=== PATIENT | female | born 1930 | race Caucasian/White ===

== ENCOUNTER → 2016-04-24 | Day surgery (SDC) | payer MEDICARE ==
[~2016-04-24] MED LIST: ALPRAZOLAM PO; AMITIZA24 MCG PO; AMOXICILLIN PO; ASPIRIN EC81 M1 PO; ASPIRIN PO; ASPIRIN81 M2 PO; ATARAX PO; BENADRYL PO; CITRACAL + D CA1 TA1 PO; CLARITHROMYCIN500 MG PO; COLACE PO; CRESTOR PO; DEMADEX PO; DEMADEX10 MG PO; EFFEXOR; ELMIRON100 MG PO; HYDROCODON-ACE1 EAC4 PO; HYDROCODON-ACE1 EAC5 PO; HYZAAR 100-25 T1 TA1 PO; HYZAAR 100-25 T1 TAB PO; HYZAAR1 TAB 100- PO; IRON325 ( 652 PO; JANUVIA PO; JANUVIA100 MG PO; JANUVIA25 MG PO; K-TAB ER20 MEQ PO; KCL PO; KLOR-CON PO; LASIX PO; LEVAQUIN PO; LEVBID; LEXAPRO PO; LEXAPRO20 MG PO; LINZESS290 MCG PO; LO-DOSE ASPIRIN81 M1 PO; LORTAB 10/500 T1 TAB PO; LOSARTAN POTAS100 MG PO; LOVENOX40 MG/0.4 INJ; MILK OF MAGNESIA PO; MYRBETRIQ25 MG PO; NEXIUM PO; NORVASC10 MG PO; OCUVITE SOFTGEL1 CA1 PO; OCUVITE TABLET1 TA1 PO; PHENERGAN12.5 MG PO; POTASSIUM CHLO10 ME1 PO; PRAVACHOL10 MG PO; PRAVACHOL20 MG PO; PRAVASTATIN SOD40 MG PO; PRILOSEC; PROTONIX PO; TOPROL XL; TOPROL XL PO; TOPROL XL100 MG PO; VICODIN; VITAMIN D50000 UNIT PO; XANAX0.5 MG PO
--- NOTE | ~2016-04-24 | OR ---
Unit #: [id number] #: [id number] Patient: EDIL BARCENAS [id number] [address] [address] [id number] O MR#: [id number] NAME: EDIL BARCENAS ROOM: Date of Procedure: 04/24/2016 Admission Date: 04/24/2016 Surgeon: Jeremy Hernandes M.D. : 1930 Attending Physician: Jeremy Hernandes M.D. Primary Care Physician: Hayley Rowan M.D. OPERATIVE REPORT JOB NOTE: CC: [facility] PREOPERATIVE DIAGNOSES Back pain, radiculopathy, degenerative disk disease, spondylolisthesis. POSTOPERATIVE DIAGNOSES Back pain, radiculopathy, degenerative disk disease, spondylolisthesis. PROCEDURE PERFORMED Lumbar epidural steroid injection with intravenous sedation and fluoroscopic guidance for needle localization. INDICATIONS FOR PROCEDURE The patient is an 85-year-old female, who had worsening back and bilateral lower extremity pain due to previously mentioned nonsurgical diagnosis. She is treated medically with p.r.n. epidural steroid injections. Injection done 2 weeks ago resulted in moderate improvement in all components of her pain. Based on a good partial response, pathology, and symptomatology, plan is to repeat epidural steroid injection again today. Last injections were completed a year and a half ago and she did very well with treatment at that point. DESCRIPTION OF PROCEDURE The patient was placed in a seated position. Standard monitors were applied. 1 mg of Versed was given for sedation and anxiolysis, which were adequate. Vital signs remained stable. Sterile prep and drape then of the lumbar area was performed. The skin then to the right of midline at the L3-4 level was localized with 1% lidocaine. An 18-gauge Aureon Labor[employer] needle was then advanced via right paramedian approach with loss of resistance technique in toward the epidural space. After confirming proper positioning with fluoroscopy and radiographic contrast, 80 mg of Depo-Medrol and 6 mL of 0.125% bupivacaine were deposited. The patient tolerated the procedure otherwise well and was discharged to the recovery room in stable condition. Dictated by... Jeremy Hernandes M.D. LHP/modl Unit #: [id number] #: [id number] Patient: EDIL BARCENAS TD: 04/24/2016 22:48 JOB #: [id number] OPERATIVE REPORT X Jeremy Hernandes MD X PROCEDURE OPERATIVE NOTE
== END | disposition home or self-care (01) ==
LOC: CCSC 09:55
DX: M51.16 Intervertebral disc disorders with radiculopathy, lumbar region (principal); M43.16 Spondylolisthesis, lumbar region; I10 Essential (primary) hypertension; K21.9 Gastro-esophageal reflux disease without esophagitis
CPT/HCPCS: 82947; J1040; J2250

== ENCOUNTER → 2016-05-08 | Day surgery (SDC) | payer MEDICARE ==
--- NOTE | ~2016-05-08 | OR ---
Unit #: [id number] #: [id number] Patient: EDIL BARCENAS [id number] [address] [address] [id number] O MR#: [id number] NAME: EDIL BARCENAS ROOM: Date of Procedure: 05/08/2016 Admission Date: 05/08/2016 Surgeon: Jeremy Hernandes M.D. : 1930 Attending Physician: Jeremy Hernandes M.D. Primary Care Physician: Hayley Rowan M.D. OPERATIVE REPORT PREOPERATIVE DIAGNOSES 1. Back pain. 2. Radiculopathy. 3. Degenerative lumbar disk disease. 4. Postlaminectomy syndrome. 5. Spondylolisthesis. POSTOPERATIVE DIAGNOSES 1. Back pain. 2. Radiculopathy. 3. Degenerative lumbar disk disease. 4. Postlaminectomy syndrome. 5. Spondylolisthesis. PROCEDURE PERFORMED Lumbar epidural steroid injection with intravenous sedation and fluoroscopic guidance for needle localization. INDICATIONS FOR PROCEDURE The patient is an 85-year-old female with significant worsening back pain, bilateral lower extremity pain, and left flank pain, which was radicular in nature. She has multilevel multifactorial nonsurgical disease and is treated medically with p.r.n. epidural steroid injections. Last injections were completed in 09/2014. She had 2 injections at this point over the last several weeks, which was given additive improvement in all components of her pain. Flank pain and back pain remain most significant. Based on her good partial response, pathology, and symptomatology, and available treatment options, plan is to repeat a final epidural steroid injection today. We are going to approach a little bit higher in the lumbar spine as we could take care more of that left-sided flank pain. DESCRIPTION OF PROCEDURE The patient was placed in a seated position. Standard monitors were applied. 1 mg of Versed was given for sedation and anxiolysis, which was adequate. Vital signs remained stable. Sterile prep and drape then of the lumbar area was performed. The skin then to the right of midline at the L2-L3 level was localized with 1% lidocaine. An 18-gauge Savelli needle was then advanced via right paramedian approach and loss of resistance technique in toward the epidural space. The patient did not complain of pain or paresthesia during needle advancement. After confirming proper needle tip positioning with fluoroscopy and radiographic contrast, a dose of 80 mg of Depo-Medrol and 6 mL of 0.125% bupivacaine Unit #: [id number] #: [id number] Patient: EDIL BARCENAS were deposited. The patient tolerated the procedure otherwise well and was discharged to the recovery room in stable condition. Dictated by... Chiquita Lehman/danielle TD: 05/09/2016 00:50 JOB #: [id number] OPERATIVE REPORT X Jeremy Hernandes MD X PROCEDURE OPERATIVE NOTE
== END | disposition home or self-care (01) ==
LOC: CCSC 09:45
DX: M51.16 Intervertebral disc disorders with radiculopathy, lumbar region (principal); M96.1 Postlaminectomy syndrome, not elsewhere classified; M43.16 Spondylolisthesis, lumbar region; I10 Essential (primary) hypertension
CPT/HCPCS: 82947; J1040; J2250

== ENCOUNTER → 2016-07-27 | Outpatient (CLI) | payer MEDICARE ==
--- NOTE | ~2016-07-27 | MY11 ---
[facility] A Service of [facility] RADIOLOGY TEXT RESULTS PATIENT: EDIL BARCENAS LOCATION: [facility] : [birth year] UNIT #: [id number] AGE: [address]: Hayley Rowan MD SEX: F ORDER DR: [id number] [facility] [address] [place], [place] [address] [id number] O MR#: [id number] Acc #: [id number] NAME: EDIL BARCENAS. : 1930 SEX: F STUDY DATE/TIME: 07/27/2016 11:06 UNIT: [facility] ROOM: STUDY DESCRIPTION: MY Mammogram Screening Dig Alex Attending Physician: Hayley Rowan M.D. Referring Physician: Hayley Rowan M.D. Ordering Physician: Hayley Rowan M.D. Primary Care Physician: Hayley Rowan M.D. MEDICAL IMAGING REPORT This report is preliminary unless electronic signature is present EXAMINATION Bilateral digital screening mammogram with CAD. DATE 07/27/2016 HISTORY Family history of breast cancer in a sister and in cousins. No personal history of breast cancer or current complaints. COMPARISON Bilateral screening mammogram 05/25/2013, 05/20/2012. FINDINGS CC and MLO views were obtained of each breast utilizing digital technique and reviewed with an FDA-approved CAD device. Scattered fibroglandular densities are present bilaterally. Round markers were placed over each breast denoting skin lesions. Fibronodular disease in the upper/outer right breast appear unchanged, and are thought most likely to represent benign intramammary lymph nodes. No new or suspicious nodule is seen. There is no architectural distortion. Benign appearing calcifications are present bilaterally. IMPRESSION 1. BIRADS 2. Benign findings. Routine bilateral screening mammogram is recommended in one year. Patients over the age of 40 are entered into a reminder system with target due date for the next mammogram. A result letter will also be sent to the patient. BIRADS: 2 Benign findings. [facility] A Service of [facility] RADIOLOGY TEXT RESULTS PATIENT: EDIL BARCENAS LOCATION: [facility] #: [id number] : [birth year] UNIT #: [id number] AGE: [address]: Hayley Rowan MD SEX: F ORDER DR: Dictated by... Ce Clark M.D. THIS IS AN ELECTRONICALLY VERIFIED REPORT Ce Clark M.D. at 07/27/2016 4:35 PM WIN/steven TD: 07/27/2016 16:10 JOB #: [id number] MEDICAL IMAGING REPORT Page 1 of 1 COPY
== END | disposition home or self-care (01) ==
LOC: CWCC 07-20 12:15
DX: Z12.31 Encounter for screening mammogram for malignant neoplasm of breast (principal); Z80.3 Family history of malignant neoplasm of breast
CPT/HCPCS: G0202

== ENCOUNTER 2016-08-05 10:47 | Inpatient (IN) | payer MEDICARE ==
--- NOTE | ~2016-08-05 | FU ---
[facility] Nutrition Therapy DATE: 08/10/16 Patient: EDIL ABRCENAS Physician: VIJAY [facility] [address] Room/Bed: [address] [place] [address], Zip: [place] [address] Admit Date: 08/05/16 Date of : [birth year] Height: 5 8 Weight: 161 73.2 NUTRITION MONITORING/FOLLOW-UP: Reason: follow-up, [facility] Dx: 85 y/o female admitted for n/v and weakness Anthropometrics: ht: 5'8" wt: 161# (73 kg) (per [facility]) BMI: 24 -Family reports weight of 142# Labs: Alb 3.2 Meds: xanax, lexapro, protonix, hydrochlorothiazide, zofran, novolog I&O's: 1050/3 Skin: WNL Assessment: Chart reviewed, events noted. Pt has advanced to consistent carbohydrate diet since last visit. Of note, the pt and pt's family report that the pt is not diabetic. There are no high glucose labs in [facility] and HgbA1C is WNL. RD internal grinder tender spoke to pt and family at bedside. Pt reports good intake and good appetite, except when occasional n/v. Pt says her appetite and intake have improved. RD internal grinder tender encouraged intake of food as tolerated and ensure supplements. The pt reported no questions at this time, RD will continue to follow. Dx: 1) Inadequate protein-energy intake r/t lower jaw edentulous AEB poor po intake per pt report, n/v. -Active/In progress 2) Unintentional weight loss r/t lower jaw edentulous, current clinical condition AEB pt reported weight loss of 38# over the past 9 months/~20% severe weight loss noted. -Active/In progress Intervention: 1. Liberalize diet 2. ensure supplements TID Monitoring, Evaluation and Goals: 1. Oral intake; tolerate >80% of all meals/supplements -In progress 2. Weight; prevent further unintentional weight loss, promote weight maintenance -In progress 3. GI; promote regular GI function -In progress [facility] Nutrition Therapy DATE: 08/10/16 Patient: EDIL BARCENAS Physician: VIJAY Address: [address] [place] [address] Room/Bed: [address] [place] [address], Zip: [place] [address] Admit Date: 08/05/16 Date of : [birth year] Height: 5 8 Weight: 161 73.2 Monitor: -weight -oral intake Recommendations: 1. Ensure vanilla BID. 2. Change consistent carbohydrate diet to regular diet as pt does not have diabetes/high bloog sugar. 3. Encourage adequate PO intake. RD will f/u per protocol as pt is at mild nutritional risk. 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
--- NOTE | ~2016-08-05 | OR ---
Unit #: [id number] #: [id number] Patient: EDIL BARCENAS [id number] [address] [address] [id number] I MR#: [id number] NAME: EDIL BARCENAS. [facility]OM[facility] Date of Procedure: 08/07/2016 Admission Date: 08/05/2016 Surgeon: Tyrell Frias M.D. : 1930 Attending Physician: Brie Garcia M.D. Primary Care Physician: Hayley Rowan M.D. OPERATIVE REPORT INDICATIONS FOR PROCEDURE Esophagogastroduodenoscopy with biopsy. INDICATIONS FOR PROCEDURE The patient with persistent severe nausea, vomiting, anorexia, and weight loss, undergoing evaluation with upper endoscopy. MEDICATIONS Monitored anesthesia. POSTOPERATIVE FINDINGS 1. Mild esophagitis, hiatal hernia, nonobstructing esophageal ring. 2. Mild diffuse gastritis. Biopsies taken. 3. Normal duodenum and distal duodenum. PLAN No clear cause for the patient's symptom was established, we will continue with PPI and symptomatic treatment for now. DESCRIPTION OF PROCEDURE The patient was explained of the procedure, risks, and benefits along with the risks and benefits of anesthesia. She was brought to the endoscopy room. Propofol anesthesia was given. Bite block was placed. The scope was passed down the mouth into the esophagus, stomach, duodenum, and distal duodenum. Findings as described. Biopsies taken. Gently, I pulled it out of the patient's mouth. She tolerated it well. Dictated by... Chiquita Mcdaniel/danielle TD: 08/07/2016 22:13 JOB #: [id number] Unit #: [id number] #: [id number] Patient: EDIL BARCENAS OPERATIVE REPORT Page 1 of 1 X Tyrell Frias MD X PROCEDURE OPERATIVE NOTE
--- NOTE | ~2016-08-05 | DS ---
Unit #: [id number] #: [id number] Patient: EDIL BARCENAS [id number] [address] [address] [id number] I MR#: [id number] NAME: EDIL BARCENAS. ROOM: 232 Age: 85 Sex: F Admission Date: 08/05/2016 : 1930 Discharge Date: Attending Physician: Brie Garcia M.D. Primary Care Physician: Hayley Rowan M.D. DISCHARGE SUMMARY ADDENDUM ADDITIONAL DISCHARGE MEDICATION Zofran 4 mg p.o. q.6 hours p.r.n. nausea and vomiting. Dictated by... Chiquita Gorman/mattie TD: 08/09/2016 09:55 JOB #: [id number] DISCHARGE SUMMARY Page 1 of 1 X Brie Garcia MD X DISCHARGE SUMMARY
--- NOTE | ~2016-08-05 | NM19 ---
[facility] A Service of [facility] & [facility] RADIOLOGY TEXT RESULTS PATIENT: EDIL BARCENAS LOCATION: [facility] 232- : 31 UNIT #: [id number] AGE: [address]: Brie Garcia MD SEX: F ORDER DR: [id number] [facility] [address] [place], [place] [address] [id number] I MR#: [id number] Acc #: [id number] NAME: EDIL BARCENAS. : 1930 SEX: F STUDY DATE/TIME: 08/08/2016 7:37 UNIT: [facility] ROOM: [facility] STUDY DESCRIPTION: NM Gastric Emptying Study Attending Physician: Brie Garcia M.D. Ordering Physician: Tyrell Frias M.D. Primary Care Physician: Hayley Rowan M.D. MEDICAL IMAGING REPORT This report is preliminary unless electronic signature is present EXAM Gastric emptying scan, 08/08/2016. HISTORY Persistent nausea and vomiting and weight loss, and abdominal bloating for 3 weeks. FINDINGS The patient ingested 600 mcCi of technetium 99m tagged sulfur colloid in eggs. Images of the upper abdomen were obtained for 4 hours. After 1 hour, the stomach was 10% empty and after 2 hours the stomach was 55% empty. At 4 hours, stomach was 97% empty. Normal range is greater than 60% empty after 2 hours of imaging and greater than 90% empty after 4 hours of imaging. IMPRESSION Borderline delay in gastric emptying after 2 hours of imaging and normal gastric emptying after 4 hours of imaging. Dictated by... Soham Duval M.D. THIS IS AN ELECTRONICALLY VERIFIED REPORT Soham Duval M.D. at 08/09/2016 8:01 AM ADOLFO/jaci TD: 08/08/2016 14:18 JOB #: [id number] MEDICAL IMAGING REPORT Page 1 of 1 COPY
--- NOTE | ~2016-08-05 | A ---
[facility] Nutrition Therapy DATE: 08/06/16 Patient: EDIL BARCENAS Physician: VIJAY Address: [address] [place] [address] Room/Bed: [address] [place] [address], Zip: [place] [address] Admit Date: 08/05/16 Date of : 31 Height: 5 8 Weight: 154 69.9 NUTRITIONAL ASSESSMENT: REASON: POOR PO INTAKE, UNINTENTIONAL WEIGHT LOSS; MARKETING STRATEGY MANAGER VERBAL REQUEST TO SEE DX: 85 Y.O. FEMALE ADMITTED FOR NAUSEA/VOMITING AND WEAKNESS PMH: CHRONIC BACK PAIN, CHF, HYPERLIPIDEMIA, DM, HYPERTENSION, OSTEOPOROSIS Anthropometrics: 5'8", 154# (70 KG), BMI 27 Labs: ALT 9 Meds: LEXAPRO, XANAX, NACL, ZOFRAN, NOVOLOG, PROTONIX I/O & Bowel function: 1420/900 Skin Integrity: WNL. Assessment: CHART REVIEWED, EVENTS NOTED. MS. BARCENAS IS A 85 Y.O. FEMALE ADMITTED FOR N/V AND WEAKNESS. RD SPOKE TO PT AND PT COUSIN AT BEDSIDE. PT AND PT'S COUSIN REPORTED THAT THE PT HAD SOME LOWER TEETH REMOVED 2015 AND SHE HAS BEEN UNABLE TO EAT SOLID FOOD SINCE THEN, ONLY EATING SOFTENED FOODS AT HOME AND DRINKING ENSURE. PT IS CURRENTLY NPO FOR AN EGD TOMORROW. PT REPORTS HER WEIGHT BEFORE THE DENTAL PROCEDURE BEING 192#, INDICATING A 38# WEIGHT LOSS OVER 9 MONTHS/~20% SEVERE WEIGHT LOSS NOTED. PT WAS VERY LETHARGIC AND WEAK AT TIME OF VISIT. RD ENCOURAGED PT TO CONSUME ADEQUATE MEALS THAT SHE CAN TOLERATE AND OFFERED TO ORDER ENSURE SUPPLEMENTS. PT'S COUSIN ASKED ABOUT MAKING NUTRITIOUS SHAKES WITH FRUITS AND VEGETABLES AT HOME FOR THE PATIENT, AND RD ENCOURAGED AND PROVIDED WRITTEN SOFT FOODS DIET EDUCATION. RD WILL REMAIN AVAILABLE. Dx: 1) INADEQUATE PROTEIN-ENERGY INTAKE R/T LOWER JAW EDENTULOUS AEB POOR PO INTAKE PER PT REPORT, NAUSEA/VOMITING 2) UNINTENTIONAL WEIGHT LOSS R/T LOWER JAW EDENTULOUS, CURRENT CLINICAL CONDITION AEB PT REPORTED WEIGHT LOSS OF 38# OVER PAST 9 MONTHS/~20% SEVERE WEIGHT LOSS NOTED. Intervention: 1. ENSURE SUPPLEMENTS ONCE DIET ADVANCES 2. NPO Monitoring, Evaluation and Goals: 1. ORAL INTAKE; TOLERATE >80% OF ALL MEALS/SUPPLEMENTS 2. WEIGHT; PREVENT FURTHER UNINTENTIONAL WEIGHT LOSS, PROMOTE WEIGHT MAINTENANCE 3. GI; PROMOTE REGULAR GI FUNCTION [facility] Nutrition Therapy DATE: 08/06/16 Patient: EDIL Su LIBRADOKAI Physician: VIJAY Address: [address] [place] [address] Room/Bed: [address] [place] [address], Zip: [place] [address] Admit Date: 08/05/16 Date of : 31 Height: 5 8 Weight: 154 69.9 Recommendations: 1. ONCE MEDICALLY FEASIBLE, ADVANCE DIET TOLERATED PER MARKETING STRATEGY MANAGER + REGULAR DIET OF NOTE, PT HAS MISSING BOTTON TEETH 2. PLEASE ORDER ENSURE VANILLA TID ONCE DIET ADVANCES RD WILL F/U PER PROTOCOL PT IS AT MILD/MODERATE NUTRITIONAL RISK. Respectfully, LAMINE ROSE, STORE SALES CONSULTANT LOUIS RAMIREZ MS, RD, LD [employer] and Nutrition[facility] Services [facility] cc: client file
--- NOTE | ~2016-08-05 | CR72 ---
[facility] A Service of [facility] & [facility] RADIOLOGY TEXT RESULTS PATIENT: EDIL BARCENAS LOCATION: [place] [address] : [birth year] UNIT #: [id number] AGE: [address]: Brie Garcia MD SEX: F ORDER DR: [id number] [facility] [address] [place], [place] [address] [id number] I MR#: [id number] Acc #: [id number] NAME: EDIL BARCENAS. : 1930 SEX: F STUDY DATE/TIME: 08/05/2016 11:19 UNIT: [id number] ROOM: 2 STUDY DESCRIPTION: CR Chest Single View Portable Attending Physician: Aiyana Lucero M.D. Ordering Physician: Neeraj Michel D.O. Primary Care Physician: Hayley Rowan M.D. MEDICAL IMAGING REPORT This report is preliminary unless electronic signature is present EXAM AP portable chest HISTORY SUPPLIED Chest pain, shortness of breath. Symptoms for 2 weeks. FINDINGS An AP portable view is obtained. Cardiac size is enlarged. Vascular pattern is normal. Lungs are clear. There are postsurgical changes of right shoulder arthroplasty. CONCLUSION 1. Cardiomegaly. 2. No active disease. Dictated by... Terry Nixon M.D. THIS IS AN ELECTRONICALLY VERIFIED REPORT Terry Nixon M.D. at 08/09/2016 7:15 AM NAMRATA/devika TD: 08/05/2016 20:14 JOB #: [id number] MEDICAL IMAGING REPORT Page 1 of 1 COPY
--- NOTE | ~2016-08-05 | CO ---
Unit #: [id number] #: [id number] Patient: EDIL BARCENAS [id number] [address] [address] [id number] I MR#: [id number] NAME: EDIL BARCENAS. ROOM: 552 Age: 85 Sex: F Admission Date: 08/05/2016 : 1930 Attending Physician: Brie Garcia M.D. Primary Care Physician: Hayley Rowan M.D. Consultation Date: 08/06/2016 CONSULTATION REPORT REASON FOR CONSULTATION Persistent nausea and vomiting. HISTORY OF PRESENTING ILLNESS Ms. Barcenas is an 85-year-old pleasant lady. She was admitted with complaints of persistent nausea and vomiting. It has been going on for about 2 months. She was recently admitted [facility], treated symptomatically and was discharged home. She continues to have the problem for last 2 weeks. She has been so weak, she has been literally bedridden, usually has been walking around and very functional before that. She has a very poor appetite and oral intake has been minimal. She has no dysphagia. She has chronic GERD and on PPI therapy. She does have chronic constipation, which has been attributed to chronic narcotic use. She has multiple joint issues including chronic back pain. PAST MEDICAL HISTORY Significant for history of esophageal ring dilated in 2011 along with gastritis and gastric nodule. Biopsy at that time were unremarkable. She has a history of coronary artery disease, congestive heart failure, also history of diabetes mellitus, chronic back pain on multiple narcotic medications and had several epidural injections also. She is status post cholecystectomy and hysterectomy and multiple joint surgeries. ALLERGIES To sulfa, Topamax, Lyrica. MEDICATIONS At home included Demadex, Nexium, Toprol, Januvia, hydrocodone, Xanax, and Lexapro. REVIEW OF SYSTEMS A complete 10-point review of systems was done, which has been negative other than as mentioned above. SOCIAL HISTORY Nonsmoker. Nonalcoholic. FAMILY HISTORY Noncontributory. PHYSICAL EXAMINATION VITAL SIGNS: Stable. Temperature 98.3, pulse 95, respirations 16, blood pressure 150/79. GENERAL: She is in no acute distress; however, seems to be weak. Unit #: [id number] #: [id number] Patient: EDIL BARCENAS HEENT: Pupils are equal and reactive. Sclerae anicteric. Oral mucosa moist. NECK: No JVD. No lymphadenopathy. CHEST: Clear to auscultation bilaterally. CARDIOVASCULAR: Regular rate and rhythm. No murmurs. ABDOMEN: Soft, nontender, and nondistended. No organomegaly or ascites. EXTREMITIES: Without clubbing, cyanosis, or edema. NEUROLOGIC: Intact. SKIN: Warm and dry. DIAGNOSTIC STUDIES LABORATORY RESULTS: Normal LFTs. Normal renal function. Lipase was 34, normal. Hemoglobin 11.8, white count 8.4, and platelet count of 244. IMAGING STUDIES: CT scan shows evidence of previous surgery, but no acute abnormalities. Previous EGD and colon findings have been detailed above. ASSESSMENT AND PLAN The patient with persistent nausea and vomiting along with severe anorexia and weight loss. She had issues with her dentures also last year that could have led to some of the weight loss, because of not able to eat; however, anorexia as well as persistent nausea is unrelated. We will plan on doing an upper endoscopy looking for any esophagitis, gastric malignancy, gastritis, gastric ulcers etc. Further recommendations to follow. At this time, we will encourage p.o. intake and treated symptomatically. Thank you, Dr. Lucero for this interesting consult. We will follow along. Dictated by... Chiquita Mcdaniel/danielle TD: 08/06/2016 07:56 JOB #: [id number] CONSULTATION REPORT Page 1 of 1 X Tyrell Frias MD X CONSULTATION REPORT
--- NOTE | ~2016-08-05 | EKG ---
PATIENT: EDIL BARCENAS UNIT #: [id number] Ventricular Rate: 53 BPM Atrial Rate: 53 BPM P-R Interval: 194 ms QRS Duration: 98 ms Q-T Interval: 464 ms QTC Calculation(Bezet): 435 ms P [place]: 41 degrees Calculated R [place]: -12 degrees Calculated T [place]: 5 degrees Diagnosis Line: Sinus bradycardia Diagnosis Line: Moderate voltage criteria for LVH, may be normal Diagnosis Line: variant Diagnosis Line: Inferior infarct , age undetermined Diagnosis Line: Abnormal ECG Diagnosis Line: When compared with ECG of 11-AUG-2015 11:50, Diagnosis Line: Inferior infarct is now Present Diagnosis Line: T wave inversion now evident in Inferior leads Diagnosis Line: Confirmed by CLIVE STEELE MD ([id number]) on 08/05/2016 Diagnosis Line: 4:53:06 PM INTERPRETING MD: CEDRIC BARBA
--- NOTE | ~2016-08-05 | DS ---
Unit #: [id number] #: [id number] Patient: EDIL BARCENAS [id number] [address] [address] [id number] I MR#: [id number] NAME: EDIL BARCENAS. ROOM: 232 Age: 85 Sex: F Admission Date: 08/05/2016 : 1930 Discharge Date: 08/09/2016 Attending Physician: Brie Garcia M.D. Primary Care Physician: Hayley Rowan M.D. DISCHARGE SUMMARY PRINCIPAL DIAGNOSES 1. Intractable nausea, vomiting, likely multifactorial including chronic poor oral intake in addition to some gastritis and anxiety induced. 2. Gastritis. 3. Hypertension, uncontrolled. 4. Chronic diastolic congestive heart failure with an ejection fraction of 55%. 5. Prior history of diabetes mellitus type 2 with hemoglobin A1C of 5.4 and sugars running in the nineties to one tens during hospitalization off of medication. 6. Loose stool with negative workup. 7. Mild protein malnutrition. 8. Anxiety and depression. ORNITHOLOGY TEACHER Dr. Frias, Gastroenterology. PROCEDURES 1. EGD on August 07, 2016, with hiatal hernia, esophageal ring acquired, nonobstructive, mild esophagitis, mild gastritis, normal duodenum. 2. Gastric emptying study with mild delay of gastric emptying at two hours, normal at four hours. 3. CT scan of the abdomen and pelvis on August 05, 2016, with changes of cholecystectomy, hysterectomy and appendectomy. No other acute findings noted. CLINICAL HISTORY AND HOSPITAL COURSE Ms. Barcenas is an 85-year-old female who presents to the emergency department with a several week history of nausea, vomiting and progressive weakness. Please refer to H and P for further details. CT scan was unremarkable. The patient was initially placed in observation for further evaluation. The following morning, the patient looked significantly weak and she appeared dehydrated. She was unable to tolerate any oral intake and thus was made inpatient. Dr. Frias was consulted. The patient had complaints of dysphagia and underwent EGD which was unremarkable for any significant findings. Due to patient's complaint, she also underwent gastric emptying study but this was also essentially unremarkable. The patient's daughter informed me that she has been struggling for approximately the last nine months after she had ill-fitting dentures placed which led to pain with eating and subsequent decreased oral intake which led to increasing weakness which subsequently led to decreased oral intake and more weakness and so on and so forth. Symptoms particularly became worse with the Unit #: [id number] #: [id number] Patient: EDIL BARCENAS addition of Neurontin two weeks ago which made the patient quite weak and the medication was discontinued and subsequently her hospitalization. Given there is no significant findings, I did place the patient on Remeron which has increased her appetite but reportedly made her more confused per family and has been discontinued. She is eating now, has only minimal nausea. Clinically, I have suspicion that some underlying anxiety and depression is playing a role given her affect is flat. I did increase her Lexapro slightly and this can be followed up per Dr. Rowan. She has no suicidal or homicidal ideation. The patient will be discharged to rehab when bed is available. DISCHARGE CONDITION Stable. DISCHARGE STATUS Discharged to rehab. DISCHARGE MEDICATION 1. Hyzaar 100/25 mg one daily. 2. Lexapro 20 mg daily. 3. Xanax 0.5 mg b.i.d. p.r.n. for anxiety. 4. Toprol succinate 100 mg at bedtime. 5. Aspirin 81 mg daily. 6. [place] 10/325 mg one tablet p.o. four times daily p.r.n. for pain. 7. Nexium 40 mg daily. 8. Clonidine 0.1 mg p.o. q.8 hours p.r.n. for systolic blood pressure greater than 160. DISCHARGE INSTRUCTIONS 1. The patient was instructed to follow a regular diet. She is not restricted on carbohydrates. 2. She can increase her activity as tolerated. FOLLOWUP The patient will follow up with Dr. Rowan upon discharge from rehab. Please note I did discontinue Januvia given her significantly low A1C and her normal sugars here. Followup depression at that time as well. Time spent on discharge 36 minutes. Dictated by... Brie Garcia M.D. FREDDIE/yasmany TD: 08/09/2016 10:23 JOB #: [id number] Unit #: [id number] #: [id number] Patient: EDIL BARCENAS DISCHARGE SUMMARY Page 1 of 1 X Brie Garcia MD DISCHARGE SUMMARY
--- NOTE | ~2016-08-05 | CT4 ---
[facility] A Service of [facility] RADIOLOGY TEXT RESULTS PATIENT: EDIL BARCENAS LOCATION: [place] [address]01 : 31 UNIT #: [id number] AGE: [address]: Brie Garcia MD SEX: F ORDER DR: [id number] [facility] [address] [facility]. [place], [place] [address] [id number] I MR#: [id number] Acc #: [id number] NAME: EDIL BARCENAS. : 1930 SEX: F STUDY DATE/TIME: 08/05/2016 13:17 UNIT: C5B ROOM: 552 STUDY DESCRIPTION: CT Abd and Pelv Wo Cont Attending Physician: Aiyana Lucero M.D. Ordering Physician: Neeraj Michel D.O. Primary Care Physician: Hayley Rowan M.D. MEDICAL IMAGING REPORT This report is preliminary unless electronic signature is present EXAM CT of the abdomen and pelvis without contrast media HISTORY Vomiting, weakness, nausea for 2 weeks. TECHNIQUE Axial imaging of the abdomen and pelvis was performed without contrast media. This CT exam was performed with one or more of the following radiation dose reduction techniques: automatic exposure control, adjustment of mA and/or kV according to patient size, and iterative reconstruction. FINDINGS Scans through the lung bases show some chronic scarring in the bases. Scans through the liver parenchyma are normal. Gallbladder surgically absent. Spleen is normal. Adrenal glands are normal. Pancreas is relatively atrophic. No dilated or thickened loops of bowel are identified. The appendix is not identified. There is colonic diverticulosis. There is no CT evidence of diverticulitis. Uterus is absent. No adnexal masses or fluid collections are seen. There is no lymphadenopathy. Atherosclerotic calcifications present in the aorta. There is evidence of degenerative disc disease throughout the lower thoracic and lumbar spine. CONCLUSION Postop changes of cholecystectomy, hysterectomy and presumably appendectomy. No acute findings in the abdomen or pelvis colonic diverticulosis without diverticulitis. Degenerative disc disease throughout the thoracic and lumbar spine. [facility] A Service of [facility] RADIOLOGY TEXT RESULTS PATIENT: EDIL BARCENAS LOCATION: [place] [address] : [birth year] UNIT #: [id number] AGE: [address]: Brie Garcia MD SEX: F ORDER DR: Dictated by... Terry Nixon M.D. THIS IS AN ELECTRONICALLY VERIFIED REPORT Terry Nixon M.D. at 08/09/2016 7:15 AM NAMRATA/robert TD: 08/05/2016 21:00 JOB #: [id number] MEDICAL IMAGING REPORT Page 1 of 1 COPY
--- NOTE | ~2016-08-05 | DS ---
Unit #: [id number] #: [id number] Patient: EDIL BARCENAS [id number] [address] [address] [id number] I MR#: [id number] NAME: EDIL BARCENAS. ROOM: 308 Age: 85 Sex: F Admission Date: 08/05/2016 : 1930 Discharge Date: Attending Physician: Brie Garcia M.D. Primary Care Physician: Hayley Rowan M.D. DISCHARGE SUMMARY ADDENDUM Patient is kept overnight awaiting precert. Her blood pressure has been high, running in the 180s up to 200s. I am going to place her on a clonidine patch 0.1 mg q. 7 days and this can be followed at rehab. I do think some of her blood pressure is anxiety related. Dictated by... Brie Garcia M.D. FREDDIE/rosalia TD: 08/10/2016 12:33 JOB #: [id number] DISCHARGE SUMMARY Page 1 of 1 X Brie Garcia MD X DISCHARGE SUMMARY
--- NOTE | ~2016-08-05 | HP ---
Unit #: [id number] #: [id number] Patient: EDIL BARCENAS [id number] [place] [id number] [facility]. [place], [place] [address] [id number] E MR#: [id number] NAME: EDIL BARCENAS ROOM: Age: 85 Sex: F Admission Date: 08/05/2016 : 1930 Attending Physician: Neeraj Michel D.O. Primary Care Physician: Hayley Rowan M.D. HISTORY AND PHYSICAL CHIEF COMPLAINT Vomiting, weakness, nausea. HISTORY OF PRESENT ILLNESS The patient is an 85-year-old female with past medical history of chronic back pain, CHF, hypertension, hyperlipidemia, diabetes, osteoporosis, who presented to the emergency department for evaluation of the above. The patient states that she has had a two-week history of increasing generalized weakness and nausea. She denies any vomiting. She states that last week she had diarrhea. This week she has had normal bowel movements. She states that she has just had a "uneasy" feeling in her abdomen. She denies any urinary symptoms. She has had chills but no documented fever. The patient was seen at [facility] emergency department on 08/03/2016 for the same problem. She was discharged home. She returned to [facility] today for evaluation. In the emergency department, pulse and blood pressure were 57 and 171/46. Laboratory is essentially unremarkable. Chest x-ray shows nothing acute. She was given Phenergan and Pepcid in the emergency department. She is being admitted to [facility] for evaluation and further treatment. PAST MEDICAL HISTORY 1. Admission to [facility] 10/06 through 10/11/2011 for chest pain. She underwent cardiac catheterization during that admission that showed minimal coronary artery disease. Normal left ventricular systolic function. 2. EGD with Dr. Mcclellan showed nonobstructing Schatzki ring, small hiatal hernia, gastritis, nodule in the antrum, friable area in the proximal duodenum. Pathology report showed hyperplastic polyp in the duodenum. No intestinal metaplasia. 3. Congestive heart failure. The patient had an echocardiogram 10/08/2011 that showed ejection fraction greater than 55%, mild mitral regurgitation, trace tricuspid regurgitation, mild aortic regurgitation. No pericardial effusion. 4. Hypertension. 5. Hyperlipidemia. 6. Diabetes. 7. Osteoporosis. 8. Chronic back pain followed by Dr. Hernandes. The patient receives epidural injections. She has degenerative disk disease and Unit #: [id number] #: [id number] Patient: EDIL BARCENAS radiculopathy. PAST SURGICAL HISTORY 1. Cardiac catheterization with results noted above. 2. Appendectomy. 3. Cholecystectomy. 4. Hysterectomy. 5. Right knee surgery. 6. Hernia repair. 7. Vein ligation in leg. 8. Rotator cuff surgery. 9. Eye surgery. 10. EGD. ALLERGIES 1. Sulfa. 2. Topamax. 3. Zonegran. 4. Lyrica. HOME MEDICATIONS 1. Potassium. 2. Demadex. 3. Nexium. 4. Hyzaar. 5. Toprol XL. 6. Januvia. 7. Hydrocodone/acetaminophen. 8. Xanax. 9. Aspirin. 10. Myrbetriq. 11. Lexapro. Home medications will need to be reviewed and verified. SOCIAL HISTORY The patient lives with her daughter. There is no tobacco or alcohol use. She typically walks without assistance but has been using a cane for the past week. REVIEW OF SYSTEMS A complete review of systems is negative except as indicated in the HPI. The patient states that she has lost 25 to 30 years over the past couple of years. The patient states that she has had difficulty swallowing. She feels like foods get "stuck." The patient's blood sugars are typically around 108 to 110. PHYSICAL EXAMINATION VITAL SIGNS: Temperature 97.5, pulse 57, respirations 16, blood pressure 171/46, oxygen saturation 100% on room air. GENERAL: The patient is a female who is awake and alert in no acute distress. HEENT: Head is atraumatic. Mucous membranes are moist. NECK: Supple. Trachea is midline. LUNGS: Clear to auscultation bilaterally with no increased work of breathing. HEART: Regular rate and rhythm. ABDOMEN: Soft, nontender. Bowel sounds present in all four quadrants. Unit #: [id number] #: [id number] Patient: EDIL BARCENAS EXTREMITIES: Nontender with no pedal edema. NEUROLOGIC: Patient is awake and alert. She follows commands. PSYCHIATRIC: Mood and affect are normal. Patient is cooperative. SKIN OF EXAMINED AREAS: Warm and dry. DIAGNOSTIC STUDIES LABORATORY: Troponin less than 0.05. Complete blood count is completely normal. INR is 1. Comprehensive metabolic panel notable for sodium 134, chloride 94, CO2 is 33. Lipase 34. Urinalysis is essentially negative. IMAGING: Chest x-ray shows nothing acute. CARDIOVASCULAR: EKG shows sinus bradycardia with rate of 53 beats per minute. ASSESSMENT The patient is an 85-year-old female with: 1. General weakness. 2. Nausea. 3. Dysphagia. 4. Chronic back pain secondary to degenerative disk disease and radiculopathy, followed by Dr. Hernandes. 5. Congestive heart failure. Ejection fraction was greater than 55% on echocardiogram 10/08/2011. 6. Hypertension. 7. Hyperlipidemia. 8. Diabetes. 9. Osteoporosis. 10. Weight loss. The patient states that she has lost about 25 pounds over the past couple of years. PLAN 1. Admit for observation to intermediate level. 2. N.p.o. until speech evaluation. 3. Speech therapy to evaluate and treat. 4. Bedrest. 5. Fall precautions. 6. PT and OT to evaluate and treat. 7. P.r.n. Zofran. 8. Normal saline at 75 mL/h. 9. Consult Dr. Frias regarding dysphagia and weight loss. 10. Serial cardiac enzymes. 11. TSH. 12. Hemoglobin A1c. 13. Low-dose sliding scale insulin with Accu-Cheks. 14. Repeat labs in the morning. 15. SCDs for DVT prophylaxis. 16. Additional workup and consultants based on above. Dictated by Aiyana Lucero M.D. Unit #: [id number] #: [id number] Patient: EDIL BARCENAS CHICA/manish TD: 08/05/2016 17:13 JOB #: [id number] HISTORY AND PHYSICAL Page 1 of 1 X Aiyana Lucero MD HISTORY AND PHYSICAL
[~2016-08-05 10:47] MED LIST changes: -LEXAPRO20 MG PO; -LOSARTAN POTAS100 MG PO; -NORVASC10 MG PO
[2016-08-05 11:41] LABS: POC - CKMB <1.0 ng/mL (0.0-7.9); POC - TROPONIN <0.05 ng/mL (<=0.05)
[2016-08-05 11:43] LABS: BASOPHIL# 0.1 X10e3 (0-0.3); BASOPHIL% 0.9 % (0-2.5); EOSINOPHIL# 0.1 X10e3 (0-0.7); EOSINOPHIL% 1.3 % (0.0-7.0); HEMATOCRIT 38.7 % (35.0-45.0); HEMOGLOBIN 12.9 gm/dL (12.0-16.0); LYMPHOCYTE# 2.2 X10e3 (1.0-3.5); LYMPHOCYTE% 27.9 % (17.0-45.0); MEAN CELL VOLUME 89.6 FL (83-96); MEAN CORPUSCULAR HEMOGLOBIN 29.8 PG (28-34); MEAN CORPUSCULAR HGB CONC 33.3 g/dL (30-36); MEAN PLATELET VOLUME 6.5 FL (6.5-11.5); MONOCYTE# 0.5 X10e3 (0-1.0); MONOCYTE% 6.2 % (3.0-12.0); NEUTROPHIL# 5.1 X10e3 (1.5-7.1); NEUTROPHIL% 63.7 % (40-75); PLATELET COUNT 265 X10e3 (140-420); RED BLOOD COUNT 4.32 X10e (3.90-5.30); RED CELL DISTRIBUTION WIDTH 13.2 % (11.0-15.5); WHITE BLOOD COUNT 7.9 X10e3 (4.0-10.5)
[2016-08-05 11:48] LABS: DIFF IND NO
[2016-08-05 11:59] LABS: PARTIAL THROMBOPLASTIN TIME 24.5 SECONDS (23.5-31.3); PROTHROMBIN TIME (PATIENT) 10.7 SECONDS (9.6-11.5)
[2016-08-05 12:12] LABS: ALBUMIN SERUM 3.9 g/dL (3.5-5.0); BILIRUBIN, DIRECT 0.1 mg/dL (0.0-0.2); BILIRUBIN,INDIRECT 0.5 mg/dL (0.0-0.9); BILIRUBIN,TOTAL 0.6 mg/dL (0.2-2.0); CALCIUM SERUM 9.5 mg/dL (8.4-10.2); GLOM FILT RATE Estimated 51.7 mL/min (>60); POTASSIUM 3.5 mmol/L (3.5-5.1); PROTEIN TOTAL SERUM 6.7 g/dL (6.0-8.3)
[2016-08-05 13:56] LABS: URINE SOURCE CLEAN CATCH
[2016-08-05 14:04] LABS: URINE APPEARANCE CLEAR; URINE BILIRUBIN NEG (NEG); URINE BLOOD NEG (NEG); URINE COLOR YELLOW; URINE GLUCOSE NEG (NEG); URINE KETONE NEG (NEG); URINE LEUKOCYTE ESTERASE NEG (NEG); URINE NITRATE NEG (NEG); URINE PROTEIN NEG (NEG); URINE SPECIFIC GRAVITY 1.013 (1.003-1.035); URINE UROBILINOGEN 0.2 MG/DL (NEG)
[2016-08-05 14:21] LABS: CULTURE INDICATED? NO
[2016-08-05 15:01] LABS: POC - CKMB <1.0 ng/mL (0.0-7.9); POC - TROPONIN <0.05 ng/mL (<=0.05)
[2016-08-05 19:51] LABS: CK TOTAL 20 IU/L (26-140)
[2016-08-06 01:23] LABS: HEMATOCRIT 35.4 % (35.0-45.0); HEMOGLOBIN 11.8 gm/dL (12.0-16.0); MEAN CORPUSCULAR HGB CONC 33.4 g/dL (30-36); MEAN PLATELET VOLUME 6.4 FL (6.5-11.5); RED BLOOD COUNT 3.94 X10e (3.90-5.30); WHITE BLOOD COUNT 8.4 X10e3 (4.0-10.5)
[2016-08-06 01:59] LABS: CK TOTAL 18 IU/L (26-140)
[2016-08-06 02:16] LABS: ALBUMIN SERUM 3.7 g/dL (3.5-5.0); BILIRUBIN,TOTAL 0.7 mg/dL (0.2-2.0); CALCIUM SERUM 8.9 mg/dL (8.4-10.2); CREATININE SERUM 0.7 mg/dL (0.6-1.4); GLOM FILT RATE Estimated 79.6 mL/min (>60); POTASSIUM 3.7 mmol/L (3.5-5.1); PROTEIN TOTAL SERUM 5.7 g/dL (6.0-8.3)
[2016-08-07 06:00] LABS: HEMATOCRIT 35.5 % (35.0-45.0); MEAN CELL VOLUME 89.5 FL (83-96); MEAN CORPUSCULAR HEMOGLOBIN 30.3 PG (28-34); MEAN CORPUSCULAR HGB CONC 33.8 g/dL (30-36); MEAN PLATELET VOLUME 6.3 FL (6.5-11.5); RED BLOOD COUNT 3.97 X10e (3.90-5.30); RED CELL DISTRIBUTION WIDTH 13.3 % (11.0-15.5); WHITE BLOOD COUNT 7.1 X10e3 (4.0-10.5)
[2016-08-07 07:31] LABS: ALBUMIN SERUM 3.5 g/dL (3.5-5.0); BILIRUBIN,TOTAL 0.6 mg/dL (0.2-2.0); BUN/CREATININE RATIO 12.22; CALCIUM SERUM 8.8 mg/dL (8.4-10.2); CREATININE SERUM 0.9 mg/dL (0.6-1.4); GLOM FILT RATE Estimated 58.8 mL/min (>60); MAGNESIUM 1.9 mg/dL (1.6-3.0); POTASSIUM 3.5 mmol/L (3.5-5.1); PROTEIN TOTAL SERUM 5.6 g/dL (6.0-8.3)
[2016-08-08 06:38] LABS: HEMATOCRIT 32.9 % (35.0-45.0); HEMOGLOBIN 11.2 gm/dL (12.0-16.0); MEAN CELL VOLUME 90.8 FL (83-96); MEAN CORPUSCULAR HEMOGLOBIN 30.9 PG (28-34); MEAN CORPUSCULAR HGB CONC 34.1 g/dL (30-36); MEAN PLATELET VOLUME 7.1 FL (6.5-11.5); RED BLOOD COUNT 3.62 X10e (3.90-5.30); RED CELL DISTRIBUTION WIDTH 13.2 % (11.0-15.5); WHITE BLOOD COUNT 7.4 X10e3 (4.0-10.5)
[2016-08-08 07:25] LABS: ALBUMIN SERUM 3.2 g/dL (3.5-5.0); BILIRUBIN,TOTAL 0.5 mg/dL (0.2-2.0); BUN/CREATININE RATIO 13.75; CALCIUM SERUM 8.5 mg/dL (8.4-10.2); CREATININE SERUM 0.8 mg/dL (0.6-1.4); GLOM FILT RATE Estimated 67.8 mL/min (>60); POTASSIUM 3.6 mmol/L (3.5-5.1); PROTEIN TOTAL SERUM 5.2 g/dL (6.0-8.3)
== END 2016-08-11 12:41 | DRG 392 ==
LOC: CED 10:47 → C2A 16:05 → CEDOF 16:05 → CED 16:05 → C5B 16:25 → CEDOF 16:25 → CED 16:25 → C5B 16:25 → CEDOF 18:16 → C5B 18:16 → C2A 08-07 13:54 → C3A PCU 08-09 17:33
PROVIDERS: Emergency Medicine; Family Medicine; Internal Medicine; Internal Medicine Gastroenterology
PROC: 0DB68ZX Excision of Stomach, Via Natural or Artificial Opening Endoscopic, Diagnostic (ICD-10-PCS; principal; 2016-08-07 08:00)
DX: K29.70 Gastritis, unspecified, without bleeding (principal); F05 Delirium due to known physiological condition; I11.0 Hypertensive heart disease with heart failure; K22.2 Esophageal obstruction; I50.32 Chronic diastolic (congestive) heart failure; E44.1 Mild protein-calorie malnutrition; M54.9 Dorsalgia, unspecified; E78.5 Hyperlipidemia, unspecified; E11.9 Type 2 diabetes mellitus without complications; M81.0 Age-related osteoporosis without current pathological fracture; G89.29 Other chronic pain; Z90.49 Acquired absence of other specified parts of digestive tract; Z90.710 Acquired absence of both cervix and uterus; Z88.2 Allergy status to sulfonamides; Z79.82 Long term (current) use of aspirin; R13.10 Dysphagia, unspecified; K44.9 Diaphragmatic hernia without obstruction or gangrene; I08.0 Rheumatic disorders of both mitral and aortic valves; K20.9 Esophagitis, unspecified; Z68.22 Body mass index [BMI] 22.0-22.9, adult; F41.9 Anxiety disorder, unspecified; F32.9 Major depressive disorder, single episode, unspecified
CPT/HCPCS: 36415; 51701; 71010; 74176; 78264; 80048; 80053; 80076; 81003; 82533; 82550; 82553; 82607; 82947; 83036; 83690; 83735; 84443; 84484; 85025; 85027; 85610; 85730; 87493; 88305; 88312; 92610; 93005; 96361; 96372; 96374; 97110; 97116; 97162; 97166; 97530; 97535; 99285; A9541; C9113; G8978-GP; G8979-GP; G8987-GO; G8988-GO; G8996-GN; G8997-GN; G8998-GN; J0360; J1885; J2405; J2550

== ENCOUNTER 2016-09-16 16:52 | Inpatient (IN) | payer MEDICARE ==
[~2016-09-16] VITALS: Ht 170.2 cm; Wt 75.0 kg
--- NOTE | ~2016-09-16 | HM ---
Unit #: [id number] #: [id number] Patient: EDIL BARCENAS [id number] [address] [address] [id number] I MR#: [id number] NAME: EDIL BARCENAS. : 1930 SEX: F STUDY DATE/TIME: 09/20/2016 UNIT: C3A PCU ROOM: [facility] STUDY DESCRIPTION: Holter monitor Attending Physician: Brie Garcia M.D. Primary Care Physician: Hayley Rowan M.D. CARDIOLOGY REPORT EXAM Holter DATE APPLIED 09/17/2016 DATE SCANNED 09/19/[address] Marta Bowman READ BY Dr. Dru Montalvo INDICATIONS Hypertension, nausea, weakness, SVT, VT. DESCRIPTION The patient was monitored for 24 hours. A total of 99,169 QRS complexes were analyzed. Less than 1% were represented by supraventricular or ventricular ectopic beats. Average heart rate was 69 BPM. Minimum heart rate of 52 BPM occurred at 5:30 a.m. Maximum heart rate 110 BPM, occurred approximately 12:50 p.m. There were no pauses. Supraventricular ectopy: 165 total beats, with two runs totally 6 beats, the longest of which was three beats at 90 BPM, the fastest was 92 BPM, three beats in duration, thus none were greater than 100 BPM. Ventricular ectopy: 56 isolated beats, with 1 three beat run of 129 BPM at approximately 2:00 p.m. Symptoms: None. Patient activated events: None. IMPRESSION 1. Holter monitor is normal. There is nonsustained, very slow, clinically asymptomatic and nonsignificant SVT and VT. 2. Normal supraventricular and ventricular ectopic beats. Unit #: [id number] #: [id number] Patient: EDIL BARCENAS Dictated by... Chiquita Capps/rosalia TD: 09/20/2016 11:13 JOB #: [id number] CARDIOLOGY REPORT Page 1 of 1 X Dru Montalvo MD HOLTER MONITOR REPORT
--- NOTE | ~2016-09-16 | CT4 ---
[facility] A Service of [facility] RADIOLOGY TEXT RESULTS PATIENT: EDIL BARCENAS LOCATION: [facility] : 31 UNIT #: [id number] AGE: [address]: Brie Garcia MD SEX: F ORDER DR: [id number] [facility] [address] [facility]. [place], [place] [address] [id number] I MR#: [id number] #: [id number] NAME: EDIL BARCENAS. : 1930 SEX: F STUDY DATE/TIME: 09/16/2016 19:47 UNIT: [address] ROOM: [facility] STUDY DESCRIPTION: CT Abd and Pelv Wo Cont Attending Physician: Brie Garcia M.D. Ordering Physician: Neeraj Michel D.O. Primary Care Physician: Hayley Rowan M.D. MEDICAL IMAGING REPORT This report is preliminary unless electronic signature is present EXAM CT abdomen and pelvis without contrast HISTORY 85-year-old female headache, abdominal pain, weakness, upper abdominal discomfort x3 days. COMPARISON CT abdomen and pelvis 08/05/2016. FINDINGS Axial images performed through the abdomen and pelvis without contrast. Multiplanar reconstructed images. This CT examination was performed with one or more of the following radiation dose reduction techniques: automatic exposure control, adjustment of mA and/or kV according to patient size, and iterative reconstruction. ABDOMEN: Lung bases unremarkable. Liver and spleen appear normal. Multiple granulomas. Post cholecystectomy. Pancreas, kidneys and adrenal glands appear normal. Visualized GI tract unremarkable except for colonic diverticulosis. No diverticulitis. PELVIS: Bladder unremarkable. Uterus surgically absent. Osseous structures remarkable for degenerative changes in the lower thoracic spine. IMPRESSION No acute intraabdominal or intrapelvic pathology. Colonic diverticulosis without diverticulitis. Dictated by.Oumar St M.D. [facility] A Service of [facility] RADIOLOGY TEXT RESULTS PATIENT: EDIL BARCENAS LOCATION: [facility] : 31 UNIT #: [id number] AGE: [address]: Brie Garcia MD SEX: F ORDER DR: THIS IS AN ELECTRONICALLY VERIFIED REPORT Benjamin St M.D. at 09/17/2016 5:39 PM ROSSY/santino TD: 09/17/2016 08:35 JOB #: [id number] MEDICAL IMAGING REPORT Page 1 of 1 COPY
--- NOTE | ~2016-09-16 | EKG ---
PATIENT: EDIL BARCENAS UNIT #: [id number] Ventricular Rate: 65 BPM Atrial Rate: 65 BPM P-R Interval: 200 ms QRS Duration: 94 ms Q-T Interval: 438 ms QTC Calculation(Bezet): 455 ms P Bronte: 70 degrees Calculated R Bronte: 4 degrees Calculated T Bronte: 74 degrees Diagnosis Line: Normal sinus rhythm Diagnosis Line: Possible Left atrial enlargement Diagnosis Line: Incomplete right bundle branch block Diagnosis Line: Septal infarct , age undetermined Diagnosis Line: Abnormal ECG Diagnosis Line: When compared with ECG of 05-AUG-2016 11:16, Diagnosis Line: Incomplete right bundle branch block is now Diagnosis Line: Present Diagnosis Line: Septal infarct is now Present Diagnosis Line: Criteria for Inferior infarct are no longer Diagnosis Line: Present Diagnosis Line: Confirmed by UYEN HUDSON MD ([id number]) on Diagnosis Line: 09/16/2016 11:18:16 PM INTERPRETING MD: TRISTAN BARBA
--- NOTE | ~2016-09-16 | DS ---
Unit #: [id number] #: [id number] Patient: EDIL BARCENAS [id number] [address] [address] [id number] I MR#: [id number] NAME: EDIL BARCENAS. ROOM: 322 Age: 85 Sex: F Admission Date: 09/16/2016 : 1930 Discharge Date: 09/18/2016 Attending Physician: Brie Garcia M.D. Primary Care Physician: Hayley Rowan M.D. DISCHARGE SUMMARY PRIMARY CARE PHYSICIAN Dr. Rowan. PRINCIPAL DIAGNOSES 1. Hypertensive urgency. 2. Nausea and vomiting, multifactorial including underlying gastritis and I think some anxiety component. 3. Hypokalemia. 4. Tension headache. 5. Anxiety and depression. 6. Hyperlipidemia. 7. Chronic pain syndrome. 8. Gastroesophageal reflux disease. 9. Mild hyponatremia with a discharge sodium level of 130. 10. Mild hyponatremia, now resolved. CONSULTANTS None. PROCEDURES CT scan of the abdomen and pelvis without contrast on 09/16/2016 with no acute intraabdominal or intrapelvic pathology. Diverticulosis noted. CT of the head without contrast on 09/16/2016 with no acute findings. CLINICAL HISTORY AND HOSPITAL COURSE Ms. Barcenas is an 85-year-old female, discharged from this facility on 08/10/2016 after a prolonged hospitalization for intractable nausea and vomiting. The patient was sent to rehab and discharged home, but has had recurrent nausea and vomiting. When she presented to this ER, she was found to be hypertensive and was also complaining of headache. A CT scan of the head in the emergency department was unremarkable. Lab work was also unremarkable with the exception of some hypokalemia. The patient was subsequently admitted for further evaluation. The patient had replacement of her potassium, but this did not have any change in her symptomatology. She was started on a clear liquid diet and started complaining of nausea, but was not having any emesis. I will note the patient underwent a rather extensive workup in last hospitalization, which was essentially unremarkable with the exception of a mild delay in gastric emptying. She states her Nexium is not helping. I have changed her to Protonix b.i.d. and will try this on an outpatient basis. In regard to the patient's elevated blood pressure, her medications have been Unit #: [id number] #: [id number] Patient: EDIL BARCENAS. On day of discharge, her systolic blood pressure was running in the 160s, but given her age, I think this is appropriate. I am going to discontinue HCTZ given her age and there were multiple possible risk factors, placed on Norvasc in addition to metoprolol and Hyzaar and blood pressure will be monitored closely. I will note orthostatics were negative in the hospital. The patient is still complaining of what is a tension headache, which I think she can treat with Tylenol [id number]. I will note the patient is somewhat anxious and in my opinion, has a little bit of perhaps memory loss as well. I am not sure how much of a contributing factor this may be in some of her recurrent symptoms. DISCHARGE CONDITION Stable. DISCHARGE STATUS Discharged to home. DISCHARGE MEDICATIONS Lexapro 20 mg daily, Xanax 0.5 mg p.o. b.i.d. p.r.n. for anxiety, Norvasc 10 mg daily, losartan 100 mg daily, metoprolol succinate 100 mg every morning, aspirin 81 mg daily, [place] 10/325 one tablet p.o. q.i.d. p.r.n. for pain, Protonix 40 mg b.i.d., Phenergan 12.5 mg p.o. q.8 hours p.r.n. for nausea and vomiting. DISCHARGE INSTRUCTIONS The patient was instructed to follow a regular diet. She can increase her activity as tolerated. FOLLOWUP The patient will follow up with her primary care provider as previously scheduled. I believe her family has scheduled with licensing specialist beginning 10/04/2016. Time spent on discharge today 33 minutes. Dictated by... Brie Garcia M.D. FREDDIE/danielle TD: 09/20/2016 06:34 JOB #: [id number] DISCHARGE SUMMARY Page 1 of 1 X Brie Garcia MD X DISCHARGE SUMMARY
--- NOTE | ~2016-09-16 | CT71 ---
[facility] A Service of [facility] RADIOLOGY TEXT RESULTS PATIENT: EDIL BARCENAS LOCATION: [facility] 322 : 31 UNIT #: [id number] AGE: [address]: Brie Garcia MD SEX: F ORDER DR: [id number] [facility] [address] [facility]. [place], [place] [address] [id number] MR#: [id number] Acc #: [id number] NAME: EDIL BARCENAS. : 1930 SEX: F STUDY DATE/TIME: 09/16/2016 19:50 UN[facility] ROOM: [facility] STUDY DESCRIPTION: CT Head Wo Contrast Attending Physician: Brie Garcia M.D. Ordering Physician: Neeraj Michel D.O. Primary Care Physician: Hayley Rowan M.D. MEDICAL IMAGING REPORT This report is preliminary unless electronic signature is present EXAM Noncontrast head CT HISTORY Headaches, head pressure and dizziness x3 days. COMPARISON 01/02/2009. FINDINGS This CT examination was performed with one or more of the following radiation dose reduction techniques: automatic exposure control, adjustment of mA and/or kV according to patient size, and iterative reconstruction. Axial noncontrast imaging of the brain demonstrates mild atrophy. No mass or mass effect or hemorrhage. No abnormal extraaxial fluid collections. Bony calvarium, skull base, mastoids and sinuses unremarkable. IMPRESSION No acute intracranial abnormality. Dictated by... Benjamin St M.D. THIS IS AN ELECTRONICALLY VERIFIED REPORT Benjamin St M.D. at 09/17/2016 5:38 PM HIMAS/santino TD: 09/17/2016 08:38 JOB #: [id number] [facility] A Service [facility] RADIOLOGY TEXT RESULTS PATIENT: EDIL BARCENAS LOCATION: [facility] 322 : 31 UNIT #: [id number] AGE: [address]: Brie Garcia MD SEX: F ORDER DR: MEDICAL IMAGING REPORT Page 1 of 1 COPY
--- NOTE | ~2016-09-16 | HP ---
Unit #: [id number] #: [id number] Patient: EDIL BARCENAS [id number] [address] [place], [place] [address] [id number] MR#: [id number] NAME: EDIL BARCENAS. ROOM: 78[address] Age: 85 Sex: F Admission Date: 09/17/2016 : 1930 Attending Physician: Marta Bowman M.D. Primary Care Physician: Hayley Rowan M.D. HISTORY AND PHYSICAL CHIEF COMPLAINT Accelerated hypertension with headache, nausea, vomiting, hypokalemia. HISTORY This pleasant 85-year-old female with hypertension, chronic pain, depression, is admitted for nausea and headache. The patient states that she was well until three days ago when she developed weakness and postural lightheadedness. Has had a constant headache since that time, and now is experiencing nausea and vomiting. Blood pressures have been running high. She presented to this emergency department with a blood pressure of 173/63. Her current blood pressure is 190/48 despite her usual antihypertensive medications. The patient was last admitted to this facility 08/05 through 08/09/2016 for intractable nausea, vomiting and weakness. An EGD was performed showing mild esophagitis, hiatal hernia, mild gastritis and nonobstructive ring. Gastric emptying study showed mild delay at 2 hours but normal at 4 hours. Her nausea/vomiting was thought to be a combination possibly of gastritis and some anxiety. She was sent to [facility] for physical therapy, and was discharged back to home two weeks ago. PAST MEDICAL HISTORY 1. Cardiac catheterization 09/2011 showing minimal coronary artery disease and normal LV function. The patient has a history of diastolic dysfunction. 2. Last EGD in July - very mild esophagitis, hiatal hernia, nonobstructive ring, mild gastritis. Again, gastric emptying study showed mild delay at 2 hours and at 4 hours. 3. Hypertension. 4. Hyperlipidemia. 5. Anxiety/depression. 6. Osteoporosis. 7. Chronic back pain requiring epidural steroid injections. 8. Appendectomy. 9. Cholecystectomy. 10. Hysterectomy. 11. Right knee surgery. 12. Hernia repair. 13. Right rotator cuff surgery. 14. Eye surgery. ALLERGIES Neurontin, sulfa, Topamax, Zonegran, Lyrica, intolerant to Remeron. Unit #: [id number] #: [id number] Patient: EDIL BARCENAS HOME MEDICATIONS From the best I can determine, include: 1. Hyzaar 100/25 daily. 2. Lexapro 20 mg daily. 3. Xanax 0.5 mg b.i.d. p.r.n. 4. Toprol 100 mg q. h.s. 5. Aspirin 81 mg. 6. [place] 10/325 q.i.d. p.r.n. 7. Nexium 40 mg daily. FAMILY HISTORY Noncontributory given patient's age. SOCIAL HISTORY The patient lives with her daughter and son-in-law. He is a lifelong nonsmoker, does not drink alcohol. REVIEW OF SYSTEMS Notable for nausea, vomiting, weakness, lightheadedness, hypertension, chronic pain, anxiety, depression, above mentioned surgeries, osteoporosis, DJD. All other systems were reviewed and are otherwise negative. PHYSICAL EXAMINATION GENERAL APPEARANCE: Pleasant 85-year-old female, currently in no acute distress. VITAL SIGNS: Temperature 97.7, pulse 65, respirations 16, blood pressure 173/63. O2 saturation is 97% on room air. HEENT: Eyes PERRLA. Extraocular muscles are intact. Pharynx is benign. NECK: Supple without adenopathy or thyromegaly. CHEST: Clear. CARDIAC: Normal S1 and S2 without S3, S4 or murmur. ABDOMEN: Bowel sounds are present. No hepatosplenomegaly, tenderness or masses. EXTREMITIES: Without clubbing, cyanosis or edema. Pedal pulses are present. NEUROLOGIC: The patient is awake, alert, oriented. Her cranial nerves are intact except that she is hard of hearing. She has +5 out of 5 strength throughout. Negative pronator drift. DIAGNOSTIC STUDIES LABORATORY: Admission labs - hematocrit is 38.5, normal white count and platelet count. SMA-12 - sodium 130, potassium 2.8, chloride is 91. Cardiac markers are negative. Urinalysis is negative. IMAGING: Head CT - no acute disease. CT scan of the abdomen and pelvis - no acute disease. Chronic diverticular disease noted. CARDIOVASCULAR: EKG - sinus rhythm, rate 65. Q noted in V1 and V2. Unit #: [id number] #: [id number] Patient: EDIL BARCENAS ASSESSMENT 1. Accelerated hypertension with headaches. 2. Nausea and vomiting with history of recurrent nausea and vomiting. Patient was last admitted in July, required EGD revealing mild gastritis and had a gastric emptying study showing mild delay at 2 hours but normal at 4 hours. 3. Hypokalemia. 4. Hyperlipidemia. 5. Anxiety and depression. 6. Chronic pain syndrome. PLANS 1. Blood pressure control. Will give a small dose of IV hydralazine now and add Norvasc to current home medicines. 2. Replace potassium and check magnesium. 3. IV fluids and supportive treatment. 4. SCDs for DVT prophylaxis. 5. May need to discontinue hydrochlorothiazide in the future if patient continues with episodes of nausea and vomiting. 6. Further workup if not responding to above. Dictated by Marta Bowman M.D. EMANI/df TD: 09/17/2016 05:23 JOB #: [id number] HISTORY AND PHYSICAL Page 1 of 1 X Marta Bowman MD X HISTORY AND PHYSICAL
[2016-09-16 19:51] LABS: BASOPHIL# 0.1 X10e3 (0-0.3); BASOPHIL% 0.6 % (0-2.5); EOSINOPHIL% 0.5 % (0.0-7.0); HEMATOCRIT 38.5 % (35.0-45.0); HEMOGLOBIN 12.8 gm/dL (12.0-16.0); LYMPHOCYTE# 1.9 X10e3 (1.0-3.5); LYMPHOCYTE% 21.6 % (17.0-45.0); MEAN CELL VOLUME 86.7 FL (83-96); MEAN CORPUSCULAR HEMOGLOBIN 28.8 PG (28-34); MEAN CORPUSCULAR HGB CONC 33.3 g/dL (30-36); MEAN PLATELET VOLUME 6.3 FL (6.5-11.5); MONOCYTE# 0.6 X10e3 (0-1.0); NEUTROPHIL# 6.2 X10e3 (1.5-7.1); NEUTROPHIL% 70.3 % (40-75); PLATELET COUNT 332 X10e3 (140-420); RED BLOOD COUNT 4.44 X10e (3.90-5.30); RED CELL DISTRIBUTION WIDTH 13.7 % (11.0-15.5); WHITE BLOOD COUNT 8.9 X10e3 (4.0-10.5)
[2016-09-16 19:53] LABS: DIFF IND NO
[2016-09-16 20:14] LABS: ALBUMIN SERUM 4.1 g/dL (3.5-5.0); BILIRUBIN, DIRECT 0.1 mg/dL (0.0-0.2); BILIRUBIN,INDIRECT 1.2 mg/dL (0.0-0.9); BILIRUBIN,TOTAL 1.3 mg/dL (0.2-2.0); CALCIUM SERUM 9.3 mg/dL (8.4-10.2); CREATININE SERUM 0.7 mg/dL (0.6-1.4); GLOM FILT RATE Estimated 79.6 mL/min (>60); PROTEIN TOTAL SERUM 7.3 g/dL (6.0-8.3)
[2016-09-16 20:18] LABS: POTASSIUM 2.8 mmol/L (3.5-5.1)
[2016-09-16 21:47] LABS: POC - CKMB <1.0 ng/mL (0.0-7.9); POC - TROPONIN <0.05 ng/mL (<=0.05)
[2016-09-16 21:59] LABS: POC - CKMB <1.0 ng/mL (0.0-7.9); POC - TROPONIN <0.05 ng/mL (<=0.05)
[2016-09-16 22:51] LABS: URINE SOURCE CLEAN CATCH
[2016-09-16 23:12] LABS: CULTURE INDICATED? NO; URINE APPEARANCE CLEAR; URINE BILIRUBIN NEG (NEG); URINE BLOOD NEG (NEG); URINE COLOR YELLOW; URINE GLUCOSE NORM (NEG); URINE KETONE NEG (NEG); URINE LEUKOCYTE ESTERASE NEG (NEG); URINE NITRATE NEG (NEG); URINE PROTEIN NEG (NEG); URINE UROBILINOGEN NORM (NEG)
[2016-09-17 06:55] LABS: BASOPHIL% 0.4 % (0-2.5); EOSINOPHIL# 0.1 X10e3 (0-0.7); EOSINOPHIL% 0.9 % (0.0-7.0); HEMATOCRIT 39.1 % (35.0-45.0); HEMOGLOBIN 12.9 gm/dL (12.0-16.0); LYMPHOCYTE# 2.2 X10e3 (1.0-3.5); LYMPHOCYTE% 21.3 % (17.0-45.0); MEAN CELL VOLUME 86.8 FL (83-96); MEAN CORPUSCULAR HEMOGLOBIN 28.6 PG (28-34); MEAN PLATELET VOLUME 6.1 FL (6.5-11.5); MONOCYTE# 0.6 X10e3 (0-1.0); NEUTROPHIL# 7.2 X10e3 (1.5-7.1); NEUTROPHIL% 71.4 % (40-75); PLATELET COUNT 340 X10e3 (140-420); RED BLOOD COUNT 4.51 X10e (3.90-5.30); RED CELL DISTRIBUTION WIDTH 13.5 % (11.0-15.5); WHITE BLOOD COUNT 10.1 X10e3 (4.0-10.5)
[2016-09-17 07:04] LABS: DIFF IND NO
[2016-09-17 07:18] LABS: BUN/CREATININE RATIO 14.28; CALCIUM SERUM 9.3 mg/dL (8.4-10.2); CREATININE SERUM 0.7 mg/dL (0.6-1.4); GLOM FILT RATE Estimated 79.6 mL/min (>60); MAGNESIUM 1.9 mg/dL (1.6-3.0); POTASSIUM 3.4 mmol/L (3.5-5.1)
[2016-09-18 05:52] LABS: CALCIUM SERUM 9.2 mg/dL (8.4-10.2); CREATININE SERUM 0.8 mg/dL (0.6-1.4); GLOM FILT RATE Estimated 67.8 mL/min (>60)
[2016-09-18] MEDS ORDERED: LEXAPRO20 MG PO (14:51)
[2016-09-18] MEDS ORDERED: LOSARTAN POTAS100 MG PO (14:51)
[2016-09-18] MEDS ORDERED: PROTONIX PO (14:52)
[2016-09-18] MEDS ORDERED: PHENERGAN12.5 MG PO (14:52)
[2016-09-18] MEDS ORDERED: NORVASC10 MG PO (14:52)
== END 2016-09-18 16:04 | disposition home or self-care (01) | DRG 305 ==
LOC: CED 16:52 → CEDOF 23:55 → CED 09-17 00:28 → CEDOF 09-17 07:45 → C3A PCU 09-17 08:24 → CEDOF 09-17 08:24 → C3A PCU 09-18 16:04
PROVIDERS: Emergency Medicine; Internal Medicine
DX: I16.0 Hypertensive urgency (principal); F32.9 Major depressive disorder, single episode, unspecified; Z90.49 Acquired absence of other specified parts of digestive tract; Z90.710 Acquired absence of both cervix and uterus; E87.6 Hypokalemia; G89.4 Chronic pain syndrome; F41.9 Anxiety disorder, unspecified; E78.5 Hyperlipidemia, unspecified; Z88.2 Allergy status to sulfonamides; Z79.82 Long term (current) use of aspirin; M81.0 Age-related osteoporosis without current pathological fracture; R11.2 Nausea with vomiting, unspecified; R51 Headache; M54.9 Dorsalgia, unspecified; Z96.651 Presence of right artificial knee joint; Z96.611 Presence of right artificial shoulder joint; Z98.42 Cataract extraction status, left eye; Z98.41 Cataract extraction status, right eye; Z96.1 Presence of intraocular lens
CPT/HCPCS: 36415; 70450; 74176; 80048; 80076; 81003; 82550; 82553; 83690; 83735; 83935; 84484; 85025; 93005; 93225; 93226; 96361; 96374; 96375; 96376; 97161; 97167; 99285; G8978-GP; G8979-GP; G8980-GP; G8987-GO; G8988-GO; G8989-GO; J0360; J2270; J2405